=== PATIENT | female | born 1990 | race Caucasian/White ===

== ENCOUNTER → 2016-03-22 | Outpatient (CLI) | payer BC ==
[~2016-03-22] MED LIST: AMPH10TA2 PO; MULT-513 PO; NAPR1TAB9 PO
== END | disposition home or self-care (01) ==
LOC: C.PAPS 13:25
PROVIDERS: ATTEND Obstetrics & Gynecology
DX: R87.610 Atypical squamous cells of undetermined significance on cytologic smear of cervix (ASC-US) (principal)

== ENCOUNTER 2017-04-27 21:04 | Inpatient (IN) | payer BC, OTHER ==
[~2017-04-27] VITALS: Ht 180.3 cm; Wt 71.1 kg
[2017-04-27 22:11] LABS: BASO % 0.3 %; BASO ABS # 0.02 K/uL (0-0.2); EOS % 0.1 %; EOS ABS # 0.01 K/uL (0-0.5); HEMATOCRIT 37.2 % (37-47); HEMOGLOBIN 12.4 g/dL (12.0-16.0); IG# 0.03 K/uL (0.00-0.02); LYMPH % 21.8 %; LYMPH ABS # 1.66 K/uL (1.2-3.4); MEAN CORPUSCULAR HEMOGLOBIN 29.7 pg (25-34); MEAN CORPUSCULAR HGB CONC 33.3 g/dl (32-36); MEAN PLATELET VOLUME 9.3 fL (7.4-10.4); MONO % 7.7 %; MONO ABS # 0.59 K/uL (0.11-0.59); NEUT % 69.7 %; NEUT ABS # 5.32 K/uL (1.4-6.5); PLATELET COUNT 272 K/uL (130-400); RED CELL DISTRIBUTION WIDTH CV 13.3 % (11.5-14.5); RED CELL DISTRIBUTION WIDTH SD 43.9 fL (36.4-46.3); WHITE BLOOD COUNT 7.63 K/uL (4.8-10.8)
[2017-04-27] MEDS ORDERED: NITROFURANTOIN MONOHYDRATE 100 MG CAP PO STA (22:30)
[2017-04-27 22:42] LABS: ALBUMIN 4.1 gm/dl (3.4-5.0); CREATININE 0.73 mg/dl (0.60-1.20); POTASSIUM 3.6 mmol/L (3.5-5.1)
[2017-04-27 22:52] LABS: TOTAL PROTEIN 7.9 gm/dl (6.4-8.2)
[2017-04-28] MEDS ORDERED: MULT-1018 PO (00:25)
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
[2017-04-28] MEDS ORDERED: NURSING VERBAL MED ORDER ONE (01:30)
[2017-04-28 01:54] VITALS: O2SAT 99
[2017-04-28] MEDS ORDERED: MAGNESIUM HYDROXIDE SUSP 30 ML UDC PO PRN (02:15)
[2017-04-28] MEDS ORDERED: hydrOXYzine HCL 25 MG TAB PO PRN ×2 (02:15)
[2017-04-28] MEDS ORDERED: SODIUM CHLORIDE 0.65% NA SOLN 45 ML (OCEAN) PRN (02:15)
[2017-04-28] MEDS ORDERED: ALUMINUM/MAGNESIUM SUSP 30 ML UDC PO PRN (02:15)
[2017-04-28] MEDS ORDERED: BISMUTH SUBSALICYLATE PER ML OMNICELL CHARGE PO PRN (02:15)
[2017-04-28] MEDS ORDERED: ACETAMINOPHEN 325 MG TAB PO PRN (02:15)
[2017-04-28 02:53] VITALS: BP 138/86; PULSE 78; TEMP 36.7; Ht 180.3 cm; Wt 71.1 kg
[2017-04-28 06:55] VITALS: BP_SYST 120; BP_SYST 128; BP_DIAS 78; BP_DIAS 82; PULSE 62; PULSE 71; TEMP 36.9
--- NOTE | 2017-04-28 10:44 | Psych Management Progress Note ---
Psychiatry Miscellaneous Date of Service: Apr 28, 2017. I personally participated in the case review and medical recommendations outlined in the psychiatric H&P documented by ELPIDIO Fernandez. I assessed her MS and agree that she doesn't appear manic at this time.
[2017-04-28] MEDS ORDERED: RISPERIDONE ODT 0.5MG PO ONE (10:58)
[2017-04-28] MEDS ORDERED: SERTRALINE HCL 50 MG TAB PO ONE (10:58)
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
--- NOTE | 2017-04-28 11:43 | Psychiatric Progress Notes ---
Psychiatric Progress Note Date of Service Apr 28, 2017. Notes Spoke with patient's father Lon by phone, ELEUTERIO signed. Father wanted update, diagnostic impression and treatment plan. He reports no past history of similar events. Confirms that she saw a provider several years ago, diagnoses with ADHD and started on Adderall which she stopped taking, as it made her anxious, jittery. They last talked to her on Monday and there was no indication of depression or paranoia, and this event is coming out of the blue. He describes her as extremely intelligent, and moral. Generally, he has seen that when she is under stress she "pulls back". No history of SI or attempts. They will be travelling here today. he was appreciative of the update.
[2017-04-28] MEDS: RISPERIDONE ODT 0.5MG PO SCH (21:29)
[2017-04-29 06:35] VITALS: BP_SYST 120; BP_SYST 122; BP_DIAS 77; BP_DIAS 80; PULSE 84; PULSE 95; TEMP 36.8
[2017-04-29] MEDS: SERTRALINE HCL 50 MG TAB PO SCH (08:51)
[2017-04-29] MEDS: RISPERIDONE ODT 0.5MG PO SCH ×2 (08:51→21:36)
[2017-04-29] MEDS ORDERED: RISPERIDONE ODT 0.5MG PO PRN (10:00)
--- NOTE | 2017-04-29 10:15 | Psychiatric Progress Notes ---
Progress Note Date of Service Apr 29, 2017. Interval History 26-year-old woman admitted voluntarily with severe depression, suicidality and paranoia. Chief Complaint "Hazy, out of focus.". Subjective Patient was seen & assessed interval progress reviewed with Treatment Team. Yoselin says that she felt tired yesterday after starting meds, took a nap. She feels that she is "hazy, out of focus" but getting better. Anxiety is better today after visiting with her parents and her boyfriend. It was good to see that they were reassured she was being well cared for which reduced their worry about her. "My boyfriend was freaked out.". Today she is starting to questions events leading to hospitalization, wondering if they were real or not. She is having fewer thoughts about what others are thinking about her, but did have some paranoid thoughts early yesterday when talking about her insurance, wondering what work would say and whether she would be fired. That occurred before starting meds yesterday. 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 She felt that others were responding to her well, and she reacted by being "over the top ". She denies any prolonged periods of elevated moods and goes on to clarify that she is reactive to people around her ie happy when then are, easily stressed when they are. She denies any further SI since admission saying that she is "committed to what I'm doing here.". She denies side effects to meds other than some fatigue. Review of Systems Constitutional: + fatigue ENT: No hearing loss, No unusual epistaxis, No nasal symptoms, No sore throat, No tinnitus, No dental problems, No trouble swallowing, No problem reported Respiratory: No cough, No sputum, No wheezing, No shortness of breath, No dyspnea on exertion, No dyspnea at rest, No hemoptysis, No problem reported Cardiovascular: No chest pain, No orthopnea, No PND, No edema, No claudication , No palpitations, No problem reported Abdomen: No pain, No nausea, No vomiting, No diarrhea, No constipation, No GI bleeding, No problem reported Musculoskeletal: No joint pain, No muscle pain, No swelling, No calf pain, No problem reported Neurologic: No memory loss, No paralysis, No weakness, No numbness/tingling, No vertigo, No balance problems, No problem reported Psychiatric: + anxiety, + problem reported (paranoia) Integumentary: No rash, No itch, No new/changing skin lesions, No color change , No bleeding, No problem reported Sleep Information Total Hours of Sleep: 7.50 Meal Information Percent of Breakfast Consumed: 100 Percent of Lunch Consumed: 75 Percent of Dinner Consumed: 80 Mental Status Exam During interview pt is: alert and oriented, cooperative Appearance: appropriately dressed, appropriately groomed Eye contact is: good Motor behavior is: steady gait & station, no abnormal motor movements Speech: normal in rate, rhythm & volume Affect: depressed, anxious Mood is: depressed Thought process: goal directed Thought content: obsessions, paranoid, delusions Suicidal thought are: present, Plan: present, Intent: denied Homicidal thoughts are: denied Hallucinations: denies auditory, denies visual Cognition: memory grossly intact, attention grossly intact, language grossly intact Intelligence estimated to be: average Insight: impaired Judgement: impaired Impression Adjusting to the support and structure of the unit, and having no side effects to meds. Starting to question the reality of her perception of events leading to hospitalization. meeting with boyfriend scheduled for Monday, and parents in from out of town for the . Will order a prn of risperdal and have encouraged her to use it when feeling confused or paranoid, and will adjust daily dose based on use. Plan (1) Major depressive disorder, recurrent, severe with psychotic features 04/28 -Patient agreeable to a trial of Zoloft. Will start 25 mg today increasing to 50 tomorrow. Risks, benefits, alternatives have been reviewed and accepted including FDA black box warning p -Patient also agreeable to a trial of Risperdal. Will start 0.5 mg twice daily. Risks, benefits, alternatives were reviewed and accepted including the risk for tardive dyskinesia, sexual side effects and GI disturbance - Will need to obtain supplemental from patient's boyfriend -Will need psychiatric aftercare -Every 15 minute checks for safety -Encourage participation in group and individual counseling - reality orientation -Assist the patient to develop healthy coping strategies -FLP and FBS for baseline monitoring on atypicals - Add risperdal M 0.5 q 4 h prn psychosis and adjust daily dosing based on use - Meeting with BF on Monday - and FBS WNL Dr. Dinorah monroe has personally been involved in the review of this case and development of these recommendations Discharge / Aftercare Planning Primary Care Physician: Name: Dr. Vela, [facility] Therapist: Name: none Unix Consultant: Name: none Visit Code E&M Code: 61379 Inventory Assets Strengths: Support from boyfriend, is employed Needs: Outpatient counseling Risk Factors Assessment : Yes /single/: Yes Higher / Fall in social status: No Health problems: No Mental Health Diagnoses: No Substance use disorders: No Previous attempt: No Previous psychiatric stay: No Hopelessness: Yes Smoker: No Protective Factors Assessment Faith beliefs: No : No Responsible for young children: No Employed: Yes Stable relationships: Yes Supportive family: Yes Data Vital Signs Last 24 Hrs: Date Time Temp Pulse Resp B/P (MAP) Pulse Ox O2 Delivery O2 Flow Rate FiO2 04/29/17 06:35 36.8 84 16 120/77 95 122/80 Meds Administered Last 24 Hrs: Meds Administered (Past 24Hrs) Medications (Trade) Dose Ordered Sig/Estefania Route Start Time Stop Time Status Last Admin Dose Admin Nitrofurantoin Macrocrystals (Macrobid Cap) 100 mg NOW STAT PO 04/27/17 22:30 04/27/17 22:32 DC 04/27/17 22:38 100 MG Sertraline HCl (Zoloft Tab) 50 mg QAM PO 04/29/17 09:00 05/29/17 08:59 04/29/17 08:51 50 MG Sertraline HCl (Zoloft Tab) 25 mg 1058 ONCE PO 04/28/17 10:58 04/28/17 11:02 DC 04/28/17 11:41 25 MG Risperidone (Risperdal M Tab) 0.5 mg BID PO 04/28/17 22:00 05/28/17 21:59 04/29/17 08:51 0.5 MG Risperidone (Risperdal M Tab) 0.5 mg 1058 ONCE PO 04/28/17 10:58 04/28/17 11:02 DC 04/28/17 11:41 0.5 MG Lab Results Last 24 Hrs: Last 24 Hours Test 04/29/17 07:13 Fasting Glucose 82 mg/dl Triglycerides Level 71 mg/dl Cholesterol Level 155 mg/dl HDL Cholesterol 62 mg/dl LDL Cholesterol, Calculated 79 mg/dl VLDL Cholesterol, Calculated 14 mg/dl Cholesterol/HDL Ratio 2.5
[2017-04-30 06:43] VITALS: BP_SYST 107; BP_SYST 125; BP_DIAS 73; BP_DIAS 83; PULSE 69; PULSE 71; TEMP 36.9
[2017-04-30] MEDS: RISPERIDONE ODT 0.5MG PO SCH (08:39)
[2017-04-30] MEDS: SERTRALINE HCL 50 MG TAB PO SCH (08:39)
--- NOTE | 2017-04-30 10:46 | Psychiatric Progress Notes ---
Progress Note Date of Service Apr 30, 2017. Interval History 26-year-old woman admitted voluntarily with severe depression, suicidality and paranoia. Chief Complaint "I'm reviewing the things that happened before I came in. ". Subjective Patient was seen & assessed interval progress reviewed with Treatment Team. The patient says that she is tired today and trying to take a rest. Her roommate disrupted her sleep early in the night. She admits that she woke with ruminative thoughts about events leading to hospitalization and is feeling paranoid that they will fire her or will have her recorded. She is also misinterpreting things people here are saying and getting paranoid that they know something about her. She has not taken any prns, trying to use self talk to get some distance from the paranoia, but agrees to take one now. Her mood is "OK", but anxious as she experiences her paranoid thoughts. She denies SI and is trying to stay focused on her treatment in the present. She has visits from family and BF last evening, but eventually asked them to leave as she was feeling overstimulated. Review of Systems Constitutional: + fatigue ENT: No hearing loss, No unusual epistaxis, No nasal symptoms, No sore throat, No tinnitus, No dental problems, No trouble swallowing, No problem reported Respiratory: No cough, No sputum, No wheezing, No shortness of breath, No dyspnea on exertion, No dyspnea at rest, No hemoptysis, No problem reported Cardiovascular: No chest pain, No orthopnea, No PND, No edema, No claudication , No palpitations, No problem reported Abdomen: No pain, No nausea, No vomiting, No diarrhea, No constipation, No GI bleeding, No problem reported Musculoskeletal: No joint pain, No muscle pain, No swelling, No calf pain, No problem reported Neurologic: No memory loss, No paralysis, No weakness, No numbness/tingling, No vertigo, No balance problems, No problem reported Psychiatric: + problem reported (paranoia) Integumentary: No rash, No itch, No new/changing skin lesions, No color change , No bleeding, No problem reported Sleep Information Total Hours of Sleep: 6.50 Meal Information Percent of Breakfast Consumed: 80 Percent of Lunch Consumed: 100 Percent of Dinner Consumed: 70 Mental Status Exam During interview pt is: alert and oriented, cooperative Appearance: appropriately dressed, appropriately groomed Eye contact is: good Motor behavior is: steady gait & station, no abnormal motor movements Speech: normal in rate, rhythm & volume Affect: depressed, anxious Mood is: depressed Thought process: goal directed Thought content: obsessions, paranoid, delusions Suicidal thought are: present, Plan: present, Intent: denied Homicidal thoughts are: denied Hallucinations: denies auditory, denies visual Cognition: memory grossly intact, attention grossly intact, language grossly intact Intelligence estimated to be: average Insight: impaired Judgement: impaired Impression More persistently paranoid, ruminatively playing out events in her head. Will increase Risperdal to1 mg. BID and increase zoloft to 100 mg. for tomorrow. Plan (1) Major depressive disorder, recurrent, severe with psychotic features 04/28 -Patient agreeable to a trial of Zoloft. Will start 25 mg today increasing to 50 tomorrow. Risks, benefits, alternatives have been reviewed and accepted including FDA black box warning p -Patient also agreeable to a trial of Risperdal. Will start 0.5 mg twice daily. Risks, benefits, alternatives were reviewed and accepted including the risk for tardive dyskinesia, sexual side effects and GI disturbance - Will need to obtain supplemental from patient's boyfriend -Will need psychiatric aftercare -Every 15 minute checks for safety -Encourage participation in group and individual counseling - reality orientation -Assist the patient to develop healthy coping strategies -FLP and FBS for baseline monitoring on atypicals 04/29 - Add risperdal M 0.5 q 4 h prn psychosis and adjust daily dosing based on use - Meeting with BF on Monday - FLP and FBS WNL 04/30 - Increase Risperdal to 1 mg. BID - Increase zoloft to [address] Dinorah monroe has personally been involved in the review of this case and development of these recommendations Discharge / Aftercare Planning Primary Care Physician: Name: Dr. Vela, [facility] Therapist: Name: none Racehorse Trainer: Name: none Visit Code E&M Code: 94911 Inventory Assets Strengths: Support from boyfriend, is employed Needs: Outpatient counseling Risk Factors Assessment : Yes /single/: Yes Higher / Fall in social status: No Health problems: No Mental Health Diagnoses: No Substance use disorders: No Previous attempt: No Previous psychiatric stay: No Hopelessness: Yes Smoker: No Protective Factors Assessment Caodaism beliefs: No : No Responsible for young children: No Employed: Yes Stable relationships: Yes Supportive family: Yes Data Vital Signs Last 24 Hrs: Date Time Temp Pulse Resp B/P (MAP) Pulse Ox O2 Delivery O2 Flow Rate FiO2 04/30/17 06:43 36.9 69 18 107/73 71 125/83 Meds Administered Last 24 Hrs: Meds Administered (Past 24Hrs) Medications (Trade) Dose Ordered Sig/Estefania Route Start Time Stop Time Status Last Admin Dose Admin Sertraline HCl (Zoloft Tab) 50 mg QAM PO 04/29/17 09:00 05/29/17 08:59 04/30/17 08:39 50 MG Sertraline HCl (Zoloft Tab) 25 mg 1058 ONCE PO 04/28/17 10:58 04/28/17 11:02 DC 04/28/17 11:41 25 MG Risperidone (Risperdal M Tab) 0.5 mg BID PO 04/28/17 22:00 05/28/17 21:59 04/30/17 08:39 0.5 MG Risperidone (Risperdal M Tab) 0.5 mg 1058 ONCE PO 04/28/17 10:58 04/28/17 11:02 DC 04/28/17 11:41 0.5 MG Lab Results Last 24 Hrs: 04/27/17 21:35 Red Blood Count 4.18, Mean Corpuscular Volume 89.0, Mean Corpuscular Hemoglobin 29.7, Mean Corpuscular Hemoglobin Concent 33.3, Mean Platelet Volume 9.3, Neutrophils (%) (Auto) 69.7, Lymphocytes (%) (Auto) 21.8, Monocytes (%) (Auto) 7.7, Eosinophils (%) (Auto) 0.1, Basophils (%) (Auto) 0.3, Neutrophils # (Auto) 5.32, Lymphocytes # (Auto) 1.66, Monocytes # (Auto) 0.59, Eosinophils # (Auto) 0.01, Basophils # (Auto) 0.02 04/27/17 21:35 Test 04/27/17 21:25 04/27/17 21:35 04/27/17 21:53 04/29/17 07:13 Urine Color DK YELLOW Urine Appearance CLEAR (CLEAR) Urine pH 6.0 (4.5-7.5) Urine Specific [place] 1.031 (1.000-1.030) Urine Protein NEG (NEG) Urine Glucose (UA) 3+ (NEG) Urine Ketones 2+ (NEG) Urine Occult Blood NEG (NEG) Urine Nitrite NEG (NEG) Urine Bilirubin NEG (NEG) Urine Urobilinogen NEG (NEG) Urine Leukocyte Esterase SMALL (NEG) Urine WBC (Auto) >30 /hpf (0-5) Urine RBC (Auto) 0-4 /hpf (0-4) Urine Hyaline Casts (Auto) 10-30 /lpf (0-5) Urine Epithelial Cells (Auto) >30 /lpf (0-5) Urine Bacteria (Auto) 1+ (NEG) Urine Test NEG (NEG) Urine Opiates Screen NEG (NEG) Urine Methadone, Qualitative NEG (NEG) Urine Barbiturates NEG (NEG) Urine Phencyclidine (PCP) Level NEG (NEG) Ur Amphetamine/Methamphetamine NEG (NEG) MDMA (Ecstasy) Screen NEG (NEG) Urine Benzodiazepines Screen NEG (NEG) Urine Cocaine Metabolite NEG (NEG) Urine Marijuana (THC) NEG (NEG) White Blood Count 7.63 K/uL (4.8-10.8) Red Blood Count 4.18 M/uL (4.2-5.4) Hemoglobin 12.4 g/dL (12.0-16.0) Hematocrit 37.2 % (37-47) Mean Corpuscular Volume 89.0 fL (80-100) Mean Corpuscular Hemoglobin 29.7 pg (25-34) Mean Corpuscular Hemoglobin Concent 33.3 g/dl (32-36) Platelet Count 272 K/uL (130-400) Mean Platelet Volume 9.3 fL (7.4-10.4) Neutrophils (%) (Auto) 69.7 % Lymphocytes (%) (Auto) 21.8 % Monocytes (%) (Auto) 7.7 % Eosinophils (%) (Auto) 0.1 % Basophils (%) (Auto) 0.3 % Neutrophils # (Auto) 5.32 K/uL (1.4-6.5) Lymphocytes # (Auto) 1.66 K/uL (1.2-3.4) Monocytes # (Auto) 0.59 K/uL (0.11-0.59) Eosinophils # (Auto) 0.01 K/uL (0-0.5) Basophils # (Auto) 0.02 K/uL (0-0.2) RDW Standard Deviation 43.9 fL (36.4-46.3) RDW Coefficient of Variation 13.3 % (11.5-14.5) Immature Granulocyte % (Auto) 0.4 % Immature Granulocyte # (Auto) 0.03 K/uL (0.00-0.02) Anion Gap 7.0 mmol/L (3-11) Est Creatinine Clear Calc Drug Dose 129.3 ml/min Estimated GFR () 130.8 Estimated GFR (Non- 112.9 BUN/Creatinine Ratio 13.3 (10-20) Calcium Level 9.0 mg/dl (8.5-10.1) Total Bilirubin 0.5 mg/dl (0.2-1) Direct Bilirubin 0.1 mg/dl (0-0.2) Aspartate Amino Transf (AST/SGOT) 7 U/L (15-37) Alanine Aminotransferase (ALT/SGPT) 14 U/L (12-78) Alkaline Phosphatase 51 U/L (45-117) Total Protein 7.9 gm/dl (6.4-8.2) Albumin 4.1 gm/dl (3.4-5.0) Thyroid Stimulating Hormone (TSH) 2.370 uIu/ml (0.300-4.500) Ethyl Alcohol mg/dL < 3.0 mg/dl (0-3) Bedside Glucose 98 mg/dl (70-90) Fasting Glucose 82 mg/dl (70-99) Triglycerides Level 71 mg/dl (0-150) Cholesterol Level 155 mg/dl (0-200) HDL Cholesterol 62 mg/dl LDL Cholesterol, Calculated 79 mg/dl VLDL Cholesterol, Calculated 14 mg/dl Cholesterol/HDL Ratio 2.5 Date/Time Source Procedure Growth Status 04/27/17 21:25 Urine , Clean Catch Urine Culture - Final THREE TYPES OF ORGANISMS PRESENT, ALL... Complete
[2017-04-30] MEDS: RISPERIDONE ODT 1MG PO SCH (20:53)
[2017-04-30] MEDS: SERTRALINE HCL 100 MG TAB PO SCH (21:00)
[2017-05-01 06:51] VITALS: BP_SYST 103; BP_SYST 87; BP_DIAS 65; BP_DIAS 71; PULSE 118; PULSE 77; TEMP 36.9
[2017-05-01] MEDS: RISPERIDONE ODT 1MG PO SCH ×2 (08:56→21:25)
[2017-05-01] MEDS: SERTRALINE HCL 100 MG TAB PO SCH (09:06)
--- NOTE | 2017-05-01 09:50 | Psychiatric Progress Notes ---
Progress Note Date of Service May 01, 2017. Interval History 26-year-old woman admitted voluntarily with severe depression, suicidality and paranoia. Chief Complaint "Pretty well ". Subjective Patient was seen & assessed interval progress reviewed with Treatment Team. Staff report the patient had 2 family meetings over the weekend, one with her parents and 1 with her boyfriend whom she lives with. Her boyfriend has already made plans to spot worker after her discharge so that she will not be alone. He confirmed that there are no guns in the home, he has removed alcohol, and she asked him to dispose of the razors which he agreed to do. She has been working on reality checking with respect to her paranoia. She continues to receive as needed doses of risperidone, receiving two 0.5 milligram doses yesterday in addition to her 1 mg scheduled dose. Her dose has been increased to 1 mg twice daily for today. On my assessment, the patient states that her mood is improving here, but she continues to feel easily overwhelmed when thinking about her job and work situation. Her boyfriend is going to contact 1 of her coworkers to "find out how I was acting" prior to coming into the hospital, and she endorses anxiety about whether or not she will be able to return to her job and not knowing "how things stand." She denies suicidal thoughts, and states she wants to live. She continues to feel overwhelmed at times, stating she is focusing on "the past and the future," and worrying about these things. She continues to have some paranoia, for example will overhear staff saying something and think that it is about her, but is able to "catch these thoughts" and recognize that they are not based in reality. She feels she needs to "figure out who I am outside of other people." She continues to struggle with focus and attention, energy is decreased, and she feels somewhat tired during the day. She is doing her ADLs and showered today. She feels medications are helping, and denies side effects, other than possible daytime sleepiness. Sleep Information Total Hours of Sleep: 7.25 Meal Information Percent of Breakfast Consumed: 80 Percent of Lunch Consumed: 25 Percent of Dinner Consumed: 90 Mental Status Exam During interview pt is: alert and oriented, cooperative Appearance: appropriately dressed, appropriately groomed Eye contact is: poor (Only brief eye contact) Motor behavior is: steady gait & station, no abnormal motor movements Speech: normal in rate, rhythm & volume Affect: mood congruent, depressed, anxious Mood is: anxious Thought process: goal directed Thought content: obsessions, paranoid, cognitive distortions Suicidal thought are: denied Homicidal thoughts are: denied Hallucinations: denies auditory, denies visual Cognition: memory grossly intact, attention grossly intact, language grossly intact Intelligence estimated to be: average Insight: impaired Judgement: impaired Impression Mood and paranoia have improved slightly, but continues to be very anxious, ruminating about work. Risperidone has been increased to 1 mg. BID and sertraline to 100 mg. daily, and she is attending and participating in groups. She would benefit from working on reality testing, healthy coping skills, and a plan for addressing her work situation. She continues to require inpatient treatment due to the severity of her depression and psychotic symptoms and the risk for rapid relapse and suicide if discharged prematurely. Plan (1) Major depressive disorder, recurrent, severe with psychotic features 04/28 -Patient agreeable to a trial of Zoloft. Will start 25 mg today increasing to 50 tomorrow. Risks, benefits, alternatives have been reviewed and accepted including FDA black box warning p -Patient also agreeable to a trial of Risperdal. Will start 0.5 mg twice daily. Risks, benefits, alternatives were reviewed and accepted including the risk for tardive dyskinesia, sexual side effects and GI disturbance -Will need to obtain supplemental from patient's boyfriend -Will need psychiatric aftercare -Every 15 minute checks for safety -Encourage participation in group and individual counseling -Reality orientation -Assist the patient to develop healthy coping strategies -FLP and FBS for baseline monitoring on atypicals 04/29 - Add risperdal M 0.5 q 4 h prn psychosis and adjust daily dosing based on use - Meeting with BF on Monday - FLP and FBS WNL 04/30 - Increase Risperdal to 1 mg. BID - Increase zoloft to 100 mg. for tomorrow. 04/03 -Medication doses increased as above. Continue with groups and therapy, referred for aftercare, and work on safety planning and reality testing. -Patient to explore her work situation, as she is not sure if she is able to return, and has significant anxiety about what her coworkers may have noticed re : her symptoms prior to admission. Consider assisting contact with her employer /boss, and discussed trying to make a preliminary plan for return to work while she is here, as well as a plan for dealing with stresses there. Encouraged her to think about how she like to respond to coworkers asking her where she was while hospitalized. -Consolidate risperidone to HS prior to discharge as may help daytime sleepiness. Discharge / Aftercare Planning Primary Care Physician: Name: Dr. Vela, [facility] Therapist: Name: none Sheet Metal Duct Installer Helper: Name: none Visit Code E&M Code: 83799 Inventory Assets Strengths: Support from boyfriend, is employed Needs: Outpatient counseling Risk Factors Assessment : Yes /single/: Yes Higher / Fall in social status: No Access to guns: No Health problems: No Mental Health Diagnoses: No Substance use disorders: No Previous attempt: No Previous psychiatric stay: No Hopelessness: No Smoker: No Protective Factors Assessment Religion beliefs: No : No Responsible for young children: No Employed: Yes Stable relationships: Yes Supportive family: Yes Good rapport with provider: No Data Vital Signs Last 24 Hrs: Date Time Temp Pulse Resp B/P (MAP) Pulse Ox O2 Delivery O2 Flow Rate FiO2 05/01/17 06:51 36.9 77 16 103/71 118 87/65 Meds Administered Last 24 Hrs: Meds Administered (Past 24Hrs) Medications (Trade) Dose Ordered Sig/Estefania Route Start Time Stop Time Status Last Admin Dose Admin Risperidone (Risperdal M Tab) 0.5 mg Q4H PRN PO 04/29/17 10:00 05/29/17 09:59 04/30/17 10:37 0.5 MG Risperidone (Risperdal M Tab) 1 mg BID PO 04/30/17 22:00 05/30/17 21:59 05/01/17 08:56 1 MG Sertraline HCl (Zoloft Tab) 100 mg QAM PO 05/01/17 09:00 05/31/17 08:59 05/01/17 09:06 100 MG
[2017-05-02 06:57] VITALS: BP_SYST 107; BP_SYST 121; BP_DIAS 66; BP_DIAS 75; PULSE 72; PULSE 83; TEMP 36.9
[2017-05-02] MEDS: SERTRALINE HCL 100 MG TAB PO SCH (08:43)
[2017-05-02] MEDS: RISPERIDONE ODT 1MG PO SCH ×2 (08:43→22:21)
--- NOTE | 2017-05-02 10:34 | Psychiatric Progress Notes ---
Progress Note Date of Service May 02, 2017. Interval History 26-year-old woman admitted voluntarily with severe depression, suicidality and paranoia. Chief Complaint "Pretty well ". Subjective Patient was seen & assessed interval progress reviewed with Nursing. Staff report she met with a counselor and worked on CBT techniques. She stated she had not yet called her employer, although her mother had spoken to someone in HR who stated they were concerned about the patient and she was welcomed back. Despite that news, she was ambivalent and anxious about calling herself. They rehearsed a phone call, and which she would say to people when they asked her where she'd been. On my assessment today, the patient states that her mood continues to improve, although she still has anxiety and paranoia. She feels she is "catching the paranoid thoughts quicker when they pop into my head," and gives an example of last night getting her Risperdal and thinking that the pill looked different, then thinking that staff were giving her a placebo, which caused her to feel anxious. She was able to reassure herself that this was not the case, and felt it was easier to dismiss these thoughts than it had been. She notes that she feels most anxious with racing thoughts when she wakes up in the morning, and has difficulty focusing, although this improves and by late afternoon she feels her best. She is hopeful for the future and denies suicidal thoughts. 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 She states that short-term disability as an option if she needs it. Today she wants to talk about and explore ways to make returning to work less anxiety provoking for her. She has thought more about what she will tell people when they ask where she has been, and is able to practice that statement. Sleep Information Total Hours of Sleep: 6.50 Meal Information Percent of Breakfast Consumed: 50 Percent of Lunch Consumed: 50 Percent of Dinner Consumed: 75 Mental Status Exam During interview pt is: alert and oriented, cooperative Appearance: appropriately dressed, appropriately groomed Eye contact is: fair Motor behavior is: steady gait & station, no abnormal motor movements Speech: normal in rate, rhythm & volume Affect: mood congruent, anxious Mood is: anxious Thought process: goal directed Thought content: obsessions, paranoid, cognitive distortions Suicidal thought are: denied Homicidal thoughts are: denied Hallucinations: denies auditory, denies visual Cognition: memory grossly intact, attention grossly intact, language grossly intact Intelligence estimated to be: average Insight: fair Judgement: fair Impression Mood and paranoia continued to improve slowly, and although anxiety has improved , it is still present and impairing. She is practicing how she will talk with her employer, but has not yet made any phone calls. Risperidone has been increased to 1 mg. BID and we will consolidate that to 2 mg nightly tomorrow, and sertraline is at 100 mg. daily, and she feels they are helping. She is attending and participating in groups, and working on discharge plans. She would benefit from ongoing CBT and reality testing, healthy coping skills, and a plan for addressing her work situation. She continues to require inpatient treatment due to the severity of her depression and psychotic symptoms and the risk for rapid relapse and suicide if discharged prematurely. Plan (1) Major depressive disorder, recurrent, severe with psychotic features 04/28 -Patient agreeable to a trial of Zoloft. Will start 25 mg today increasing to 50 tomorrow. Risks, benefits, alternatives have been reviewed and accepted including FDA black box warning p -Patient also agreeable to a trial of Risperdal. Will start 0.5 mg twice daily. Risks, benefits, alternatives were reviewed and accepted including the risk for tardive dyskinesia, sexual side effects and GI disturbance -Will need to obtain supplemental from patient's boyfriend -Will need psychiatric aftercare -Every 15 minute checks for safety -Encourage participation in group and individual counseling -Reality orientation -Assist the patient to develop healthy coping strategies -FLP and FBS for baseline monitoring on atypicals 04/29 - Add risperdal M 0.5 q 4 h prn psychosis and adjust daily dosing based on use - Meeting with BF on Monday - FLP and FBS WNL 04/30 - Increase Risperdal to 1 mg. BID - Increase zoloft to 100 mg. for tomorrow. 04/03 -Medication doses increased as above. Continue with groups and therapy, referred for aftercare, and work on safety planning and reality testing. -Patient to explore her work situation, as she is not sure if she is able to return, and has significant anxiety about what her coworkers may have noticed re : her symptoms prior to admission. Consider assisting contact with her employer /boss, and discussed trying to make a preliminary plan for return to work while she is here, as well as a plan for dealing with stresses there. Encouraged her to think about how she like to respond to coworkers asking her where she was while hospitalized. -Consolidate risperidone to HS prior to discharge as may help daytime sleepiness. 04/04 -Consolidate risperidone to 2 mg nightly for tomorrow; advised patient this will be a pill rather than the M-Tab. -Continue sertraline 100 mg daily, as the patient feels it is helping and after discussion of the option of increasing the dose, would like to stay on her current dose for now and give it more time to work. -Continue to attend groups, work on discharge plans, and work on a specific plan for returning to work. She is thinking she would like to return about a week after discharge, and start with part-time work. Encouraged to talk to HR to figure out how this would work. Discharge / Aftercare Planning Primary Care Physician: Name: Dr. Vela, [facility] Psychiatrist: Name: Dr. Earl, [facility] ([address] [place] [address]) Date of Appointment: May 11, 2017 Time of Appointment: 8:30 Appointment Notes: bring photo ID, ins card, co pay and credit card to appt Therapist: Name: Melody Braga, [facility] Date of Appointment: May 24, 2017 Time of Appointment: 9am Salesperson Flowers: Name: none Other: Name of Appointment #1: . Visit Code E&M Code: 17002 Inventory Assets Strengths: Support from boyfriend, is employed Needs: Outpatient counseling Risk Factors Assessment : Yes /single/: Yes Higher / Fall in social status: No Access to guns: No Health problems: No Mental Health Diagnoses: No Substance use disorders: No Previous attempt: No Previous psychiatric stay: No Hopelessness: No Smoker: No Protective Factors Assessment Episcopalian beliefs: No : No Responsible for young children: No Employed: Yes Stable relationships: Yes Supportive family: Yes Good rapport with provider: No Data Vital Signs Last 24 Hrs: Date Time Temp Pulse Resp B/P (MAP) Pulse Ox O2 Delivery O2 Flow Rate FiO2 05/02/17 06:57 36.9 72 16 107/66 83 121/75 Meds Administered Last 24 Hrs: Meds Administered (Past 24Hrs) Medications (Trade) Dose Ordered Sig/Estefania Route Start Time Stop Time Status Last Admin Dose Admin Risperidone (Risperdal M Tab) 1 mg BID PO 04/30/17 22:00 05/02/17 23:59 05/02/17 08:43 1 MG Sertraline HCl (Zoloft Tab) 100 mg QAM PO 05/01/17 09:00 05/31/17 08:59 05/02/17 08:43 100 MG
[2017-05-03 07:06] VITALS: BP_SYST 115; BP_SYST 117; BP_DIAS 71; BP_DIAS 79; PULSE 76; PULSE 80; TEMP 36.7
[2017-05-03] MEDS: SERTRALINE HCL 100 MG TAB PO SCH (09:05)
--- NOTE | 2017-05-03 11:19 | Psychiatric Progress Notes ---
Progress Note Date of Service May 03, 2017. Interval History 26-year-old woman admitted voluntarily with severe depression, suicidality and paranoia. Chief Complaint "I just keep over-thinking". Subjective Patient was seen & assessed interval progress reviewed with Treatment Team. Staff report the patient has been able to process her delusional thoughts about her male coworker, and felt relieved after talking with her family about her work situation. Her boyfriend and mother have both talked to her employer's HR department, and want her to complete [facility] paperwork. She still has not contacted her employer herself to work on a plan for returning to work. She reports improved mood, but anxiety has been exacerbated by talking about work. She also reports racing thoughts, rumination and paranoia about her work situation. She has been attending and participating appropriately in groups. Today, she states she is "over-thinking" things, continues to catch herself thinking in a paranoid way, and has to redirect her thinking frequently. She gives an example of hearing a peer talk about work, and then thinking that meant they knew about her work situation. She continues to report anxiety, worse in the morning or when thinking about work. Her boyfriend is bringing in [facility] paperwork, but she still has not called her employer, although she plans to do that today. She is anxious about how her coworkers will treat her, not wanting them to treat her differently, and how she'll feel being around the man she "was obsessed with," noting that they work in the same room and she will see him daily. She is hoping that it won't be a big problem, and thinks she will focus on her relationship with her BF and improving that, and thinks she is less inclined to "daydream and fantasize" about him. She doesn't work directly with him, and doesn't socialize with him outside of work. 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 She asked about her urinalysis results, and reviewed results of urine culture and that it was a contaminated sample. She denies UTI symptoms. Again reviewed her medication doses and timing, that risperidone is 2mg at bedtime. Sleep Information Total Hours of Sleep: 7.00 Meal Information Percent of Breakfast Consumed: 70 Percent of Lunch Consumed: 100 Percent of Dinner Consumed: 100 Mental Status Exam During interview pt is: alert and oriented, cooperative Appearance: appropriately dressed, appropriately groomed Eye contact is: fair Motor behavior is: steady gait & station, no abnormal motor movements Speech: normal in rate, rhythm & volume Affect: mood congruent, anxious Mood is: anxious Thought process: goal directed Thought content: obsessions, paranoid, cognitive distortions Suicidal thought are: denied Homicidal thoughts are: denied Hallucinations: denies auditory, denies visual Cognition: memory grossly intact, attention grossly intact, language grossly intact Intelligence estimated to be: average Insight: fair Judgement: fair Impression Mood and paranoia continued to improve slowly, and although anxiety has improved , it is still present and impairing. She is practicing how she will talk with her employer, but has not yet made any phone calls. Risperidone has been increased to 1 mg. BID and we will consolidate that to 2 mg nightly tomorrow, and sertraline is at 100 mg. daily, and she feels they are helping. She is attending and participating in groups, and working on discharge plans. She would benefit from ongoing CBT and reality testing, healthy coping skills, and a plan for addressing her work situation. She continues to require inpatient treatment due to the severity of her depression and psychotic symptoms and the risk for rapid relapse and suicide if discharged prematurely. Plan (1) Major depressive disorder, recurrent, severe with psychotic features 04/28 -Patient agreeable to a trial of Zoloft. Will start 25 mg today increasing to 50 tomorrow. Risks, benefits, alternatives have been reviewed and accepted including FDA black box warning p -Patient also agreeable to a trial of Risperdal. Will start 0.5 mg twice daily. Risks, benefits, alternatives were reviewed and accepted including the risk for tardive dyskinesia, sexual side effects and GI disturbance -Will need to obtain supplemental from patient's boyfriend -Will need psychiatric aftercare -Every 15 minute checks for safety -Encourage participation in group and individual counseling -Reality orientation -Assist the patient to develop healthy coping strategies -FLP and FBS for baseline monitoring on atypicals 04/29 - Add risperdal M 0.5 q 4 h prn psychosis and adjust daily dosing based on use - Meeting with BF on Monday - FLP and FBS WNL 04/30 - Increase Risperdal to 1 mg. BID - Increase zoloft to 100 mg. for tomorrow. 04/03 -Medication doses increased as above. Continue with groups and therapy, referred for aftercare, and work on safety planning and reality testing. -Patient to explore her work situation, as she is not sure if she is able to return, and has significant anxiety about what her coworkers may have noticed re : her symptoms prior to admission. Consider assisting contact with her employer /boss, and discussed trying to make a preliminary plan for return to work while she is here, as well as a plan for dealing with stresses there. Encouraged her to think about how she like to respond to coworkers asking her where she was while hospitalized. -Consolidate risperidone to HS prior to discharge as may help daytime sleepiness. 04/04 -Consolidate risperidone to 2 mg nightly for tomorrow; advised patient this will be a pill rather than the M-Tab. -Continue sertraline 100 mg daily, as the patient feels it is helping and after discussion of the option of increasing the dose, would like to stay on her current dose for now and give it more time to work. -Continue to attend groups, work on discharge plans, and work on a specific plan for returning to work. She is thinking she would like to return about a week after discharge, and start with part-time work. Encouraged to talk to HR to figure out how this would work. 04/05 -Continue risperidone and sertraline at current doses; patient states she may try the 0.5 mg dose of risperidone tomorrow morning, as anxiety, racing thoughts, and paranoia seem to be worse in the morning. She would also like to have a prescription for the 0.5 mg dose available after discharge. -Patient plans to call her employer today to discuss her plan to return to work: Will go back on May 12, for a half day, and then resume full- time work the following week. Boyfriend is bringing in FMLA paperwork today. She is also planning to discuss discharge timing with boyfriend today, considering leaving tomorrow evening versus Monday. -Continue to attend groups and work on coping skills, with a focus on returning to work, as well as discharge planning and ways to add structure and maintain a good routine at home. Discharge / Aftercare Planning Primary Care Physician: Name: Dr. Vela, [facility] Psychiatrist: Name: Dr. Earl, [facility] ([address] [facility], [place] [address]) Date of Appointment: May 11, 2017 Time of Appointment: 8:30 Appointment Notes: bring photo ID, ins card, co pay and credit card to appt Therapist: Name: Melody Braga [facility] Date of Appointment: May 24, 2017 Time of Appointment: 9am Refining Still Operator: Name: none Other: Name of Appointment #1: . Visit Code E&M Code: 22200 Inventory Assets Strengths: Support from boyfriend, is employed Needs: Outpatient counseling Risk Factors Assessment : Yes /single/: Yes Higher / Fall in social status: No Access to guns: No Health problems: No Mental Health Diagnoses: No Substance use disorders: No Previous attempt: No Previous psychiatric stay: No Hopelessness: No Smoker: No Protective Factors Assessment Scientologist beliefs: No : No Responsible for young children: No Employed: Yes Stable relationships: Yes Supportive family: Yes Good rapport with provider: No Data Vital Signs Last 24 Hrs: Date Time Temp Pulse Resp B/P (MAP) Pulse Ox O2 Delivery O2 Flow Rate FiO2 05/03/17 07:06 36.7 76 16 115/71 80 117/79
[2017-05-03] MEDS: RISPERIDONE 2 MG TAB PO SCH (22:00)
[2017-05-04 06:58] VITALS: BP_SYST 113; BP_SYST 117; BP_DIAS 75; PULSE 64; PULSE 98; TEMP 36.7
[2017-05-04] MEDS: SERTRALINE HCL 100 MG TAB PO SCH (08:46)
[2017-05-04] MEDS ORDERED: RSP2 PO (10:59)
[2017-05-04] MEDS ORDERED: RSPODT5 PO (10:59)
[2017-05-04] MEDS ORDERED: ZLF/100 PO (10:59)
--- NOTE | 2017-05-04 11:04 | Discharge Instructions ---
Discharge Information Report Includes Report will include the: Discharge Instructions & Summary Admission Admission Date / Time: Apr 28, 2017 at 01:31 Reason for Admission: Psychosis Nos, 201 Discharge Discharge Diagnosis / Problem: Depressive disorder with psychotic features Condition at Discharge: Fair Discharge Goals Goal(s): Improve function, Increase independence, Learn about illness, Therapeutic intervention, Prevent Disease Progression Activity Recommendations Activity Limitations: resume your previous activity . Instructions / Follow-Up Instructions / Follow-Up . SPECIAL CARE INSTRUCTIONS: 1. Follow through with your scheduled aftercare appointments. If unable to keep an appointment, please call to reschedule. 2. Take your medication only as prescribed. Medication should not be changed or stopped without the approval of your doctor. In the event of worsening symptoms or concerns about side effects, contact your doctor immediately. 3. Utilize new healthy coping skills, anger management skills, and stress management skills learned during your hospitalization. Journal feelings and process them with a support person. Identify stressors or situations that may result in relapse, deterioration or inappropriate behaviors and develop a plan to deal with those issues. 4. If your coping skills are ineffective and you are in crisis, contact your outpatient providers for direction. If unable to reach your providers, please call the CAN HELP LINE AT or go to the closest Emergency Room. 5. Avoid alcohol and un-prescribed drugs. 6. You have been provided with the Mental Health Advance Directives Pamphlet for your review. AFTERCARE APPOINTMENTS: * Please call your insurance company prior to your scheduled appointment to confirm your aftercare providers are covered. Take your insurance information to your appointments. . Discharge / Aftercare Planning Primary Care Physician: Name: Dr. Vela, [facility] Psychiatrist: Name: Dr. Earl, [facility] ([address] [place] [address]) Date of Appointment: May 11, 2017 Time of Appointment: 8:30 Appointment Notes: bring photo ID, ins card, co pay and credit card to appt Therapist: Name Of Therapist: Melody Braga [facility] Date of Appointment: May 24, 2017 Time of Appointment: 9am Roping Tender: Name: none Other: Name of Appointment #1: . . Follow-Up Care Plan for Follow-Up Care: Pt's aftercare was established during his admission to allow for timely followup with psychiatric providers following discharge. Pt has been assigned to a psychiatric prescriber for management of medications as well as a therapist. Current Hospital Diet Patient's current hospital diet: Regular Diet Discharge Diet Recommended Diet: Regular Diet Procedures Procedures Performed: No Pending Studies Pending Studies at Discharge: No Medical Emergencies . Who to Call and When: Medical Emergencies: For questions or emergencies related to your hospital stay, please contact the Inpatient Behavioral Health Unit at [phone]. A crude oil driver is on-call 29/08 for the Behavioral Health Unit for emergencies At any time you feel your situation is an emergency, you may also call 911 immediately. . Non-Emergent Contact Non-Emergency issues call your: Primary Care Provider, Psychiatrist, Therapist Advance Directives Do You Have an Existing Mental: No Existing Living Will: No Existing Power of Char Filter Operator Helper: No Advance Directives Info Given: To Pt/S.O. Advance Directives Reason: Declines as Mental Health Visit. Discharge Summary Admission HPI Per the Admitting provider: The patient is a 26-year-old woman who was brought to the emergency department by her boyfriend after she came home and reported suicidal thinking. She says that she has been depressed for more than a month and a large part of her stress has to do with work. 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 This crush developed into what she describes as a "obsession" and she spends a lot of her time thinking about him. She will look every day to see whether or not there is any indication that he likes her or does not and will try to arrange her schedule so that she has time near him. She denies that this has ever gone farther than thoughts, denies ever having stopped him. She has been working very hard in order to impress him and others at work. She says that "yesterday it came to a head" after someone made a dirty joke at work on Monday. When she went to work on , she describes that she was "in another state of mind" and was insinuating she could make accusations of sexual harassment against that employee based on that joke. At that point she started thinking that her coworkers were "plotting against me". She went out to lunch with her usual group of female friends, was talking with them and her boyfriend. When they returned to the office, she felt like someone had told this man of her thoughts of filing harassment charges. She thought this because the office environment was quiet. She claims that others were making jokes about the sexual comments and then feels that she overheard people talking about protecting the company, protecting the plastering supervisor. She also feels that she heard people saying that she would be fired before 5:00. This did not happen, she left at 5 and was so distressed that she drove around thinking that her life was ruined and she should commit suicide. She was thinking of all the way she could do so I decided she needed to go home and write a suicide note. She lives with her boyfriend who was home when she arrived, he asked her what she was upset about and they discussed the incidence. He tried to reassure her but could not and so agreed to come to the hospital. The more upset she got the more paranoid her thinking became including believing that perhaps they were chips in the computers and phones, that they were monitoring her through her TV, researching her and that everything had been staged to reach this point. Today she says that her mood has been "pretty depressed" for the last month. She again confirms her suicidal ideation and plans to write a suicide note. She reports that she has been sleeping a lot more, not eating well since she took the job last September and has lost 10 pounds. She reports that she has chronic anxiety that predates this event, saying that she worries that other people are judging her and looking at her. She uses the word "dissociative" to describe times when she feels like she "turns myself off". She talks about having daydreams of herself with this person she likes but acknowledges those daydreams are not real. She does however feel like she "lives to feed the obsession" about him and sometimes describes herself as feeling outside of her body. She denies any clear auditory or visual hallucinations. She does describe some social isolation, feeling that she has cut herself off from her friends. She has a previous diagnosis in 2013 of ADHD and does feel like she is easily distracted at work and is not currently taking any medication. She does have some cutting behaviors. She has occasionally cut on her arms and at times when shaving her legs if she nicks herself she will allow it to bleed for a long time, enjoying this sensation. She denies any clear eating disordered behaviors but is conscious of eating around others, not liking them to see her consumed food. It is difficult to get a clear picture of bipolar disorder but she does say that she has had at least one period during which she felt she needed less sleep and was hypertalkativ. Hospital Course (1) Major depressive disorder, recurrent, severe with psychotic features 04/28 -Patient agreeable to a trial of Zoloft. Will start 25 mg today increasing to 50 tomorrow. Risks, benefits, alternatives have been reviewed and accepted including FDA black box warning p -Patient also agreeable to a trial of Risperdal. Will start 0.5 mg twice daily. Risks, benefits, alternatives were reviewed and accepted including the risk for tardive dyskinesia, sexual side effects and GI disturbance -Will need to obtain supplemental from patient's boyfriend -Will need psychiatric aftercare -Every 15 minute checks for safety -Encourage participation in group and individual counseling -Reality orientation -Assist the patient to develop healthy coping strategies -FLP and FBS for baseline monitoring on atypicals 04/29 - Add risperdal M 0.5 q 4 h prn psychosis and adjust daily dosing based on use - Meeting with BF on Monday - FLP and FBS WNL 04/30 - Increase Risperdal to 1 mg. BID - Increase zoloft to 100 mg. for tomorrow. 04/03 -Medication doses increased as above. Continue with groups and therapy, referred for aftercare, and work on safety planning and reality testing. -Patient to explore her work situation, as she is not sure if she is able to return, and has significant anxiety about what her coworkers may have noticed re : her symptoms prior to admission. Consider assisting contact with her employer /boss, and discussed trying to make a preliminary plan for return to work while she is here, as well as a plan for dealing with stresses there. Encouraged her to think about how she like to respond to coworkers asking her where she was while hospitalized. -Consolidate risperidone to HS prior to discharge as may help daytime sleepiness. 04/04 -Consolidate risperidone to 2 mg nightly for tomorrow; advised patient this will be a pill rather than the M-Tab. -Continue sertraline 100 mg daily, as the patient feels it is helping and after discussion of the option of increasing the dose, would like to stay on her current dose for now and give it more time to work. -Continue to attend groups, work on discharge plans, and work on a specific plan for returning to work. She is thinking she would like to return about a week after discharge, and start with part-time work. Encouraged to talk to HR to figure out how this would work. 04/05 -Continue risperidone and sertraline at current doses; patient states she may try the 0.5 mg dose of risperidone tomorrow morning, as anxiety, racing thoughts, and paranoia seem to be worse in the morning. She would also like to have a prescription for the 0.5 mg dose available after discharge. -Patient plans to call her employer today to discuss her plan to return to work: Will go back on May 12, for a half day, and then resume full- time work the following week. Boyfriend is bringing in [employer] paperwork today. She is also planning to discuss discharge timing with boyfriend today, considering leaving tomorrow evening versus Monday. -Continue to attend groups and work on coping skills, with a focus on returning to work, as well as discharge planning and ways to add structure and maintain a good routine at home. Risk Factors Assessment : Yes /single/: Yes Higher / Fall in social status: No Access to guns: No Health problems: No Mental Health Diagnoses: No Substance use disorders: No Previous attempt: No Previous psychiatric stay: No Hopelessness: No Smoker: No Protective Factors Assessment Bahai beliefs: No : No Responsible for young children: No Employed: Yes Stable relationships: Yes Supportive family: Yes Good rapport with provider: No Day of Discharge Assessment COURSE OF HOSPITALIZATION: Pt was voluntarily admitted to [address] [place] [address] on 04/28/2017 after being brought to the emergency room by her boyfriend. Pt reports an increase in delusions and paranoid behavior; initially starting with a "crush" on a male plastering supervisor, but then feeling like everyone at work was talking about her. Pt decided she needed to write a suicide note and end her life; however, her boyfriend was in the house when she returned home. Pt was agreeable to his recommendation for a mental health evaluation. Pt was started on sertraline as well as low-dose risperidone when admitted to target low mood and delusions/paranoia. Pt's dose of sertraline has been increased over the course of her hospitalization, which she feels has been beneficial. She states an interest in holding at a 100mg dose for a period of time to observe effects. Pt has been on 2mg risperidone qHS to help with cognitive distortions, with 0.5mg prn doses available. Pt has gained insight into her condition and states she is better able to recognize distorted thoughts and reality test prior to acting on them. Pt states she has been able to recognize these tendencies and request prn risperidone when her thoughts are overwhelming. Pt has denied SI since admission and reports improvement in her condition over the course of her hospitalization. DAY OF DISCHARGE ASSESSMENT: Pt's case discussed today with nursing. Staff reports the patient is doing well and has been able to catch cognitive distortions more quickly and use techniques to reality test these thoughts. Pt was seen today to assess progress since admission and determine readiness for discharge. Pt states she is "feeling miles better than when I first got here." Pt has noticed benefit from HS Risperdal and feels her thinking has been more clear. Pt shares these she still experiences "strange thoughts", but feels she is able to sort out reality from cognitive distortions. Pt discussed her plan to leave this evening when her boyfriend is available to pick her up. She states she will take the next week settling back into a routine and plans to return to work for 1/2 a day on Monday, 05/12. Pt feels anxious, but states she has noticed a difference and is ready to transition to her home routine. Pt denies any side effects to medications and continues to deny SI/HI or concerns. Based on review of the patient's records and presentation at this encounter, the patient appears appropriate for discharge today. Transition of care record was reviewed with the patient. Pt was encouraged to continue to take medications as prescribed until recommended to stop by another prescriber. The patient presented as alert and cooperative. The patient was casually dressed and groomed. Eye contact was good. No psychomotor restlessness or agitation was noted. Speech was normal in rate, rhythm, and volume. Affect was mood congruent. The patients mood appeared mildly dulled, but improved since admission. Thought processes were clear, coherent and goal directed without evidence of loose associations or flight of ideas, patient is much more organized. Thought content/perception was reality based without delusions reported at today's encounter. The patient denied suicidal and homicidal ideation. The patient denied hallucinations and did not appear to be responding to internal stimuli. Cognition was grossly intact with orientation to person, place and time. Fund of Knowledge/Intelligence were consistent with level of education. Insight and Judgement were fair. Laboratory Refer to printed laboratory reports Test 04/27/17 21:25 04/27/17 21:35 04/27/17 21:53 04/29/17 07:13 Urine Color DK YELLOW Urine Appearance CLEAR Urine pH 6.0 Urine Specific [place] 1.031 Urine Protein NEG Urine Glucose (UA) 3+ Urine Ketones 2+ Urine Occult Blood NEG Urine Nitrite NEG Urine Bilirubin NEG Urine Urobilinogen NEG Urine Leukocyte Esterase SMALL Urine WBC (Auto) >30 Urine RBC (Auto) 0-4 Urine Hyaline Casts (Auto) 10-30 Urine Epithelial Cells (Auto) >30 Urine Bacteria (Auto) 1+ Urine Test NEG Urine Opiates Screen NEG Urine Methadone, Qualitative NEG Urine Barbiturates NEG Urine Phencyclidine (PCP) Level NEG Ur Amphetamine/Methamphetamine NEG MDMA (Ecstasy) Screen NEG Urine Benzodiazepines Screen NEG Urine Cocaine Metabolite NEG Urine Marijuana (THC) NEG White Blood Count 7.63 Red Blood Count 4.18 Hemoglobin 12.4 Hematocrit 37.2 Mean Corpuscular Volume 89.0 Mean Corpuscular Hemoglobin 29.7 Mean Corpuscular Hemoglobin Concent 33.3 Platelet Count 272 Mean Platelet Volume 9.3 Neutrophils (%) (Auto) 69.7 Lymphocytes (%) (Auto) 21.8 Monocytes (%) (Auto) 7.7 Eosinophils (%) (Auto) 0.1 Basophils (%) (Auto) 0.3 Neutrophils # (Auto) 5.32 Lymphocytes # (Auto) 1.66 Monocytes # (Auto) 0.59 Eosinophils # (Auto) 0.01 Basophils # (Auto) 0.02 RDW Standard Deviation 43.9 RDW Coefficient of Variation 13.3 Immature Granulocyte % (Auto) 0.4 Immature Granulocyte # (Auto) 0.03 Sodium Level 135 Potassium Level 3.6 Chloride Level 104 Carbon Dioxide Level 25 Anion Gap 7.0 Blood Urea Nitrogen 10 Creatinine 0.73 Est Creatinine Clear Calc Drug Dose 129.3 Estimated GFR () 130.8 Estimated GFR (Non- 112.9 BUN/Creatinine Ratio 13.3 Random Glucose 105 Calcium Level 9.0 Total Bilirubin 0.5 Direct Bilirubin 0.1 Aspartate Amino Transferase (AST) 7 Alanine Aminotransferase (ALT) 14 Alkaline Phosphatase 51 Total Protein 7.9 Albumin 4.1 Thyroid Stimulating Hormone (TSH) 2.370 Ethyl Alcohol mg/dL < 3.0 POC Glucose 98 Fasting Glucose 82 Triglycerides Level 71 Cholesterol Level 155 HDL Cholesterol 62 LDL Cholesterol, Calculated 79 VLDL Cholesterol, Calculated 14 Cholesterol/HDL Ratio 2.5 Total Time Total Time Spent (min): Greater than 30 minutes Total Time Included: examination of the patient, discharge planning, medication reconciliation, communication with other providers Tobacco Cessation at Discharge Smoking Status: Never Smoker FDA approved Prescription: non-smoker
[2017-05-04] MEDS ORDERED: DESTROY THIS MEDICATION ONE (12:45)
== END 2017-05-04 16:15 | disposition home or self-care (01) | DRG 885 ==
LOC: C.EDB 21:06 → C.MHU 04-28 01:31 → ENRESERV 04-28 01:43
PROVIDERS: ADMIT Psychiatry & Neurology Psychiatry; ATTEND Psychiatry & Neurology Child & Adolescent Psychiatry
DX: F33.3 Major depressive disorder, recurrent, severe with psychotic symptoms (principal); R45.851 Suicidal ideations; R82.90 Unspecified abnormal findings in urine; Z91.018 Allergy to other foods; Z83.3 Family history of diabetes mellitus; Z82.49 Family history of ischemic heart disease and other diseases of the circulatory system; Z81.8 Family history of other mental and behavioral disorders; Z81.1 Family history of alcohol abuse and dependence

== ENCOUNTER → 2017-09-19 | Outpatient (CLI) | payer BC ==
[~2017-09-19] MED LIST changes: -AMPH10TA2 PO; +MULT-1018 PO; -MULT-513 PO; -NAPR1TAB9 PO; +RSP2 PO; +RSPODT5 PO; +ZLF/100 PO
[2017-09-19 17:15] LABS: PROLACTIN 11.14 ng/mL; THYROXINE (T4) 6.5 mcg/dl (4.5-10.9)
== END | disposition home or self-care (01) ==
LOC: C.LABBC 11:57
PROVIDERS: ATTEND Psychiatry & Neurology Psychiatry
DX: O92.6 Galactorrhea (principal); O99.340 Other mental disorders complicating pregnancy, unspecified trimester; F32.3 Major depressive disorder, single episode, severe with psychotic features